=== PATIENT | male | born 1955 | race Hispanic/Latino ===

== ENCOUNTER 2017-09-13 08:25 | Day surgery (SDC) | payer MEDICAID, OTHER ==
[~2017-09-13] VITALS: Ht 160 cm; Wt 56.1 kg
[~2017-09-13 08:25] MED LIST: SODIUM CHLORIDE 0.9% 1000ML 1,000 ML IV ONE
[2017-09-13 09:22] VITALS: BP 98/69
[2017-09-13] MEDS ORDERED: PROPOFOL 10 MG/ML 20ML VIAL IV ONE ×2 (09:22)
[2017-09-13] MEDS ORDERED: SOLI5 PO (09:33)
[2017-09-13] MEDS ORDERED: CEPH500C2 PO (09:33)
[2017-09-13] MEDS ORDERED: DEXA4TAB PO (09:33)
[2017-09-13] MEDS ORDERED: IRON1CAP32 PO (09:33)
== END 2017-09-13 10:55 | disposition home or self-care (01) ==
LOC: ENDO 08:25 → DAH 08:25 → ENDO 10:55
PROVIDERS: ATTEND Internal Medicine Gastroenterology
DX: B37.81 Candidal esophagitis (principal); K22.10 Ulcer of esophagus without bleeding; K29.50 Unspecified chronic gastritis without bleeding; E11.9 Type 2 diabetes mellitus without complications; C34.90 Malignant neoplasm of unspecified part of unspecified bronchus or lung; I10 Essential (primary) hypertension; E78.5 Hyperlipidemia, unspecified; Z98.42 Cataract extraction status, left eye
CPT/HCPCS: 43239; 82948 ×2; 88305; 88312; A4606; J2704 ×2; J7030